=== PATIENT | male | born 1930 | race Caucasian/White ===

== ENCOUNTER → 2016-12-31 | Outpatient (CLI) | payer OTHER ==
[2015-09-03 12:30] VITALS: BP 195/89
[~2016-12-31] MED LIST: ALLO300T PO; AMLO5TAB2 PO; BENZ200C39 PO; DICL100G7 TP; FLUO15CR TP; FLUT9.9S NS; FURO20TA3 PO; GLUCOSAMINE; HYDR12.53 PO; LISI1TAB5 PO; MULT-659 PO; NAPR500T PO; OMEG1CAP38 PO; POTA20PA8 PO; PRED15SO3 PO; SALI44.3 MM
--- NOTE | 2017-01-01 12:24 | PAIN ---
DATE OF SERVICE: 12/31/2016 DIAGNOSES: 1. Lumbar radiculopathy with lumbar degenerative disk disease. 2. Thoracic degenerative disk disease. HISTORY OF PRESENT ILLNESS: The patient is an 86-year-old male who returns for followup, last seen on 08/19/2016, the patient underwent a second lumbar epidural steroid injection, at that time, did very well. The patient reports approximately 75-80% improvement at that time with the pain in his low back and right lower extremity. The patient reports the pain is returning now for about the past 30 days, is increasing, not nearly to the baseline level that it was, but it is beginning to become more painful in the low back, right leg, right posterior thigh, posterior calf as well as the lateral calf as well on the right side, occasional pain in the left low back and gluteus, mostly on the right. The patient reports it is also in the anterior thigh, medial thigh on the right side and into the right groin at times as well. The patient reports it is better with sitting or lying down. He has been sleeping fairly well, awakes him from sleep occasionally. He rates his pain as a 3 or 4 on a scale of 10. The patient did have MRI scans in the past and plain films as well, which showed some significant degenerative disk disease and stenosis in the areas of the L2-L3, L3-L4, L4-L5 and L5-S1 levels with significant bone spurring and significant stenosis in these regions. The patient has responded well; however, to lumbar epidural steroid injections again with good response about 80% on the most recent one in July, which was the second one in that series. The patient reports no new motor or sensory deficits. No bowel or bladder incontinence or other complaints. PHYSICAL EXAMINATION: VITAL SIGNS: The patient's blood pressure 133/93, pulse 85, respirations 18, temperature 98.3 degrees Fahrenheit, height is 5 feet 11 inches, weight is 203 pounds. GENERAL: The patient is awake, alert, oriented, appropriate, very pleasant demeanor. HEENT: Head shows normocephalic, atraumatic. The patient wears eyeglasses. Extraocular movements are intact and symmetrical. Oral cavity shows mucous membranes moist and pink. Dentition is intact. NECK: Shows anterior throat supple. Swallow reflex is symmetrical. Neck shows full rotational motion. CHEST: Shows normal on inspection. Breath sounds are clear to auscultation bilaterally. HEART: Shows S1 and S2 clear. ABDOMEN: Soft, nontender, nondistended. No palpable organomegaly. No rebound or guarding demonstrated. BACK: Shows spine grossly midline. Slight exaggeration of thoracic kyphosis and mild flattening of lumbar lordotic curvature. No previous bruises, lesions, rashes or scars are noted. Lumbar paraspinous muscle shows some moderate tenderness to palpation throughout the upper, middle and lower distribution, but is symmetrical without evidence of atrophy, hypertrophy. Muscle girth shows normal on palpation. The patient shows good rotational motion both laterally greater than 10 degrees right and left as well as extension greater than 10 degrees, forward flexion to 45 degrees without difficulty or tenderness reported. No tenderness over the sacrum or sacroiliac regions. LOWER EXTREMITIES: Show deep tendon reflexes 2+ in the patella, 1+ tendo calcaneus tendons. Motor exam is approximately 4 on a scale 5 with right dorsiflexion, extension, quadriceps and hamstring flexion 5/5 on the left. Peripheral pulses are 1+ posterior tibial and dorsalis pedis pulses. No peripheral edema is noted. No clubbing or cyanosis. Options were discussed with the patient and the patient's old chart was reviewed as his current medication regimen updated, current review of systems updated today as well. PLAN: We discussed an additional lumbar epidural steroid injection. He did very well with these in the past. The patient continues to do his stretching and strengthening exercises at home and has had chiropractic treatment as well as the recently as earlier this week, which he feels is somewhat beneficial, but again, still significant pain in a radicular fashion in low back, right lower extremity over the left. We will preauthorize the patient for lumbar epidural steroid injection. He will continue to do exercises at home as noted and also chiropractic treatment in the meantime and we will have him return for a lumbar epidural steroid injection in approximately 1-2 weeks. ELLIE DIANA MD DR: SHARI/asha JOB#: [id number] / [id number]
== END | disposition home or self-care (01) ==
LOC: PNCL 10:05
PROVIDERS: ATTEND Anesthesiology
DX: M51.16 Intervertebral disc disorders with radiculopathy, lumbar region (principal); M51.34 Other intervertebral disc degeneration, thoracic region
CPT/HCPCS: G0463

== ENCOUNTER → 2017-01-14 | Outpatient (CLI) | payer OTHER ==
[2015-09-03 12:30] VITALS: BP 195/89
[~2017-01-14] MED LIST changes: +IOHEXOL 180 MG/ML 10 ML VIAL. ONE; +methylPREDNISolone ACETATE 40 MG/ML VIAL. ONE; +methylPREDNISolone ACETATE 80 MG/ML VIAL. ONE
--- NOTE | 2017-01-15 07:11 | PAIN ---
DATE OF SERVICE: 01/14/2017 PROGRESS NOTE FOR PAIN CLINIC DIAGNOSES: 1. Lumbar radiculopathy with lumbar degenerative disk disease. 2. Thoracic degenerative disk disease. HISTORY OF PRESENT ILLNESS: The patient is an 86-year-old male who returns for followup status post lumbar epidural steroid injections in the past. He did very well with these; most recently was in 07/2016. The patient has been preauthorized for additional injection today as his pain is returning in the low back and right lower extremity. The patient reports no new motor or sensory deficits, but still significant pain in the low back region, right lower extremity, rates at 4 to a 6 on a scale of 10, it is a constant ache, worse with standing and walking activity. He has been increasing activity lately. 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 The patient reports no new motor or sensory deficits; however, no new bowel or bladder incontinence or other complaints. PHYSICAL EXAMINATION: VITAL SIGNS: The patient's blood pressure 144/87, pulse 84, respirations 18, temperature 97.8 degrees Fahrenheit, height is 5 feet 11 inches, weight is 200 pounds. GENERAL: The patient is awake, alert, oriented, appropriate, has a very pleasant demeanor. HEENT: Head shows normocephalic, atraumatic. The patient wears eye glasses. Extraocular movements are intact and symmetrical. Oral cavity, mucous membranes are moist and pink. Dentition is intact. NECK: Shows anterior throat supple without palpable lymphadenopathy noted. Swallow reflex is symmetrical. CHEST: Shows normal on inspection. Breath sounds clear to auscultation bilaterally. HEART: Shows S1 and S2 clear. ABDOMEN: Soft, nontender, nondistended. BACK: Shows spine grossly midline. Slight exaggeration of thoracic kyphosis and mild flattening of lumbar lordotic curvature. Lumbar paraspinous muscle shows some mild tenderness with palpation only diffusely in the lower lumbar distribution, but without asymmetry, without radiation. No tenderness over the sacrum or sacroiliac regions. EXTREMITIES: Lower extremities showed deep tendon reflexes 2+ in the patellar, 1+ tendo calcaneus tendons. Motor exam is approximately 4 on a scale of 5 in the right dorsiflexion, extension, quadriceps and hamstring flexion 5/5 on the left. Options were discussed with the patient. The patient's old chart was reviewed as his current medication regimen updated. Current review of systems updated today as well and we will proceed with a lumbar epidural steroid injection today. This is the third in the series with fluoroscopic guidance. Risks were again discussed including, but not limited to bleeding, infection, possibility of epidural hematoma, subsequent neurologic compromise, dural punctures, headaches, spinal cord and/or nerve damage, side effects of steroid medication and poor results regarding pain control. The patient understands and wishes to proceed. The patient will return to clinic in approximately 2 weeks for followup. He was counseled as to return appointment, activity level and side effects to be aware of. DIAGNOSIS: Lumbar radiculopathy with lumbar degenerative disease. PROCEDURE: Lumbar epidural steroid injection in translaminar approach in the L3-L4 level with C-arm fluoroscopic guidance under sterile prep and drape using local anesthesia. MEDICATIONS INJECTED: 120 mg Depo-Medrol plus 10 mL of preservative-free normal saline and 2 mL of Isovue for contrast. CONDITION AT DISCHARGE: Stable. The patient tolerated procedure well, had no complications. ELLIE DIANA MD DR: SHARI/asha JOB#: [id number] / [id number]
== END | disposition home or self-care (01) ==
LOC: PNCL 09:50
PROVIDERS: ATTEND Anesthesiology
DX: M51.16 Intervertebral disc disorders with radiculopathy, lumbar region (principal)
CPT/HCPCS: 62323; J1030; J1040

== ENCOUNTER → 2017-03-02 | Outpatient (CLI) | payer OTHER ==
[2015-09-03 12:30] VITALS: BP 195/89
[~2017-03-02] MED LIST changes: -IOHEXOL 180 MG/ML 10 ML VIAL. ONE; +TRIA15OI TP; -methylPREDNISolone ACETATE 40 MG/ML VIAL. ONE; -methylPREDNISolone ACETATE 80 MG/ML VIAL. ONE
--- NOTE | 2017-03-03 06:56 | PAIN ---
DATE OF SERVICE: 03/02/2017 PROGRESS NOTE FOR PAIN CLINIC DIAGNOSES: 1. Lumbar radiculopathy with lumbar degenerative disk disease. 2. Thoracic degenerative disk disease. HISTORY OF PRESENT ILLNESS: The patient is an 86-year-old male who returns for followup status post lumbar epidural steroid injections, most recently 01/14/2017. The patient did very well with near 80% improvement after the last injection. The patient reports it is beginning to return now. It has been about 6 or 7 weeks since his last injection and it is beginning to return now in the low back and right lower extremity as it was previously, mostly in the posterior back, posterior lateral gluteus, lateral and medial thigh, anterior thigh, medial knee and medial lower leg with extended walking more than about 15-20 minutes. The patient reports his left leg is still essentially pain free, but significant pain in the right lower extremity with radiating pain as noted on the right side. The patient reports it is awakening him from sleep occasionally, but not every night. Otherwise, he sleeps fairly well. It is beginning to limit his activities secondary to the pain when he is walking. It is better with sitting down or lying down for most times, but does awaken him from sleep occasionally when he is lying on his right side. The patient reports no loss of motor function. No new bowel or bladder incontinence or other complaints, but still significant pain radiating into the right leg from the low back as it has previously. The patient rates his pain as a 7 on a scale of 10 at its worst. It is currently a 3-4 on a scale of 10 on visit today. PHYSICAL EXAMINATION: VITAL SIGNS: The patient's blood pressure is 132/76, pulse 80, respirations 18, temperature is 98.5 degrees Fahrenheit. Height is 5 feet 11 inches, weight is 202 pounds. GENERAL: The patient is awake, alert, oriented, appropriate, has a very pleasant demeanor. HEENT: Shows normocephalic, atraumatic. Extraocular movements are intact and symmetrical. Oral cavity shows mucous membranes moist and pink. Dentition is intact. NECK: Shows anterior throat supple without palpable lymphadenopathy noted. Swallow reflex is symmetrical. Neck shows full rotational motion of the cervical spine including extension and flexion without difficulty. CHEST: Shows normal on inspection. Breath sounds are clear to auscultation bilaterally. HEART: Shows S1 and S2 clear. No murmurs auscultated. ABDOMEN: Soft, nontender, nondistended. No palpable organomegaly is noted. No rebound or guarding demonstrated. BACK: Shows spine grossly in the midline, slight exaggeration of thoracic kyphosis and mild flattening of the lumbar lordotic curvature. Lumbar paraspinous musculature shows symmetrical on inspection, with palpation shows normal muscle girth, is firm, moderately tender to palpation in the lower lumbar distribution, slightly more on the right than the left, but appears roughly symmetrical, again normal muscle girth without trigger points, without radiation of pain, on palpation, the patient shows no tenderness over the spinous processes over the sacrum or sacroiliac regions. The patient shows good rotational motion both laterally greater than 10 degrees right and left as well as extension greater than 10 degrees, forward flexion 45 degrees without significant pain reported in the low back as well. No tenderness over the sacrum or sacroiliac regions. LOWER EXTREMITIES: Show deep tendon reflexes at 2+ in the patellar, 1+ tendo calcaneus tendons. Motor exam is approximately 4 on a scale of 5 with right dorsiflexion, extension, quadriceps and hamstring flexion and 5/5 on the left, but intact bilaterally. Peripheral pulses are 1+ posterior tibial and dorsalis pedis pulses. No peripheral edema is noted. No clubbing, no cyanosis. Lower extremities are warm and dry to touch, equal in color and appearance. Straight leg raise is noted to be positive on the right at about 40 degrees with straight leg raise, which is decreased with knee flexion, but not completely relieved the pain in the lateral and anterior thigh with this maneuver. Left side shows nontender with straight leg raise. The patient is able to stand. He is walking with a slight shuffling in his gait, appears to favor the right lower extremity slightly, but not using any assistive devices such as canes or walkers to ambulate. PLAN: Options were discussed with the patient and the patient's old chart was reviewed as was his current medication regimen and updated. Current review of systems updated today as well. We will preauthorize the patient for a lumbar epidural steroid injection. He has done very well with these in the past with similar radicular pain as he is having now in the right lower extremity noted with a history of L3-L4 stenosis and degenerative disk disease. The patient will wait for preauthorization and will return to clinic and we will plan on lumbar epidural steroid injection in approximately 1 week. ELLIE DIANA MD DR: SHARI/asha JOB#: [id number] / [id number]
== END | disposition home or self-care (01) ==
LOC: PNCL 10:54
PROVIDERS: ATTEND Anesthesiology
DX: M51.16 Intervertebral disc disorders with radiculopathy, lumbar region (principal); M51.34 Other intervertebral disc degeneration, thoracic region
CPT/HCPCS: G0463

== ENCOUNTER → 2017-03-23 | Outpatient (CLI) | payer OTHER ==
[2015-09-03 12:30] VITALS: BP 195/89
[~2017-03-23] MED LIST changes: +IOHEXOL 180 MG/ML 10 ML VIAL. ONE; +methylPREDNISolone ACETATE 40 MG/ML VIAL. ONE; +methylPREDNISolone ACETATE 80 MG/ML VIAL. ONE
--- NOTE | 2017-03-23 14:11 | PAIN ---
DATE OF SERVICE: 03/23/2017 PROGRESS NOTE FOR PAIN CLINIC DIAGNOSES: Lumbar radiculopathy with lumbar degenerative disk disease. HISTORY OF PRESENT ILLNESS: The patient is an 86-year-old male, who returns for followup status post lumbar epidural steroid injection x 1. The patient did very well after the first injection with approximately 85% improvement. The pain is returning now in his low back and right lower extremity, but still doing much better. The patient reports he is still sleeping about 7-8 hours at night, does not awaken him from sleep, increasing activity with moderate improvement, still anywhere from 2 to 7 on a scale of 10, 7 with increased activity and this was noticeable last week when he was doing some increased walking with the pain in his right leg radiating to the right anterior thigh and medial thigh with some tingling as well as some sharp pain, as well as aching. The patient reports no new motor or sensory deficits; however, no new complaints, still some pain across the low back as well, but unchanged. The patient reports no new motor or sensory deficits. No bowel or bladder incontinence. PHYSICAL EXAMINATION: VITAL SIGNS: Today, the patient's blood pressure 135/82, pulse 78, respirations are 20, temperature is 98.1 degrees Fahrenheit. Height is 5 feet 11 inches, weight is 205 pounds. GENERAL: The patient is awake, alert, oriented, appropriate, very pleasant demeanor. HEENT: Head shows normocephalic, atraumatic. Extraocular movements are intact and symmetrical. Oral cavity shows mucous membranes moist and pink. Dentition is intact. NECK: Shows anterior throat supple without palpable lymphadenopathy noted. Swallow reflex is symmetrical. CHEST: Shows normal with inspection. Breath sounds clear to auscultation bilaterally. HEART: Shows S1 and S2 clear. No murmurs auscultated. ABDOMEN: Soft, nontender, nondistended. No palpable organomegaly is noted. No rebound or guarding demonstrated. BACK: Shows spine grossly midline. Slight exaggeration of thoracic kyphosis and some mild flattening of lumbar lordotic curvature. Lumbar paraspinous musculature shows some mild tenderness, but only diffusely in the lower lumbar distribution without radiation, shows good rotational motion both laterally as well as extension and flexion without exacerbation of pain. EXTREMITIES: Lower extremities show deep tendon reflexes 2+ in the patellar, 1+ tendo calcaneus tendons. Motor exam is approximately 4 on a scale of 5 with right dorsiflexion and extension, 5/5 with left dorsiflexion and extension. Options were discussed with the patient. The patient's old chart was reviewed as his current medication regimen updated. Current review of systems updated today as well. We will proceed with a second lumbar epidural steroid injection today with fluoroscopic guidance. Risks were again discussed including, but not limited to bleeding, infection, possibility of epidural hematoma, subsequent neurologic compromise, dural puncture, headaches, spinal cord and/or nerve damage, side effects of steroid medication and poor results regarding pain control. The patient understands and wishes to proceed. The patient will return to clinic in approximately 2 weeks for followup, was counseled on return appointment, activity level and side effects to be aware of. DIAGNOSES: Lumbar radiculopathy with lumbar degenerative disk disease. PROCEDURES: Lumbar epidural steroid injection in translaminar approach at the L3-L4 level using C-arm fluoroscopic guidance under sterile prep and drape using local anesthetic. MEDICATION INJECTED: Depo-Medrol 120 mg plus 5 mL of preservative-free normal saline and 2 mL of Isovue for contrast. CONDITION AT DISCHARGE: Stable. The patient tolerated procedure well, had no complications. ELLIE DIANA MD DR: SHARI/asha JOB#: [id number] / [id number]
== END | disposition home or self-care (01) ==
LOC: PNCL 10:15
PROVIDERS: ATTEND Anesthesiology
DX: M51.16 Intervertebral disc disorders with radiculopathy, lumbar region (principal)
CPT/HCPCS: 62323; J1030; J1040

== ENCOUNTER → 2017-06-09 | Outpatient (CLI) | payer OTHER ==
[2015-09-03 12:30] VITALS: BP 195/89
[~2017-06-09] MED LIST changes: -BENZ200C39 PO; +BENZ200C47 PO; +DICL100G18 TP; -DICL100G7 TP; -IOHEXOL 180 MG/ML 10 ML VIAL. ONE; +POTA20PA21 PO; -POTA20PA8 PO; -methylPREDNISolone ACETATE 40 MG/ML VIAL. ONE; -methylPREDNISolone ACETATE 80 MG/ML VIAL. ONE
== END | disposition home or self-care (01) ==
LOC: PNCL 09:16
PROVIDERS: ATTEND Anesthesiology
DX: Z00.00 Encounter for general adult medical examination without abnormal findings (principal); E78.00 Pure hypercholesterolemia, unspecified; R73.01 Impaired fasting glucose
CPT/HCPCS: G0463

== ENCOUNTER → 2017-06-25 | Outpatient (CLI) | payer OTHER ==
[2015-09-03 12:30] VITALS: BP 195/89
[~2017-06-25] MED LIST changes: +IOHEXOL 180 MG/ML 10 ML VIAL. ONE; +methylPREDNISolone ACETATE 40 MG/ML VIAL. ONE; +methylPREDNISolone ACETATE 80 MG/ML VIAL. ONE
--- NOTE | 2017-06-25 23:25 | PAIN ---
DATE OF SERVICE: PROGRESS NOTE FOR PAIN CLINIC DIAGNOSES: Lumbar radiculopathy with lumbar degenerative disk disease. HISTORY OF PRESENT ILLNESS: The patient is an 87-year-old male, who returns for followup status post lumbar epidural steroid injection x 1 with very good results, about 75% improvement. The patient reports that his pain is returning. We had seen him for office visit and had preauthorization obtained for second injection as the pain is returning in the low back and right lower extremity. The patient reports that now it is a 5-6 on a scale of 10, 7 at its worst. It is currently a 2 on a scale of 10. The patient reports that it is aching and sharp, radiating to the right leg as it was previously, as well as at the low back, no new motor or sensory deficits, and no new bowel or bladder incontinence. The patient reports that it does not awaken her from sleep at night, much worse with standing and walking, better with sitting and lying down - ____ most comfortable positions. The patient reports no other complaints. PHYSICAL EXAMINATION: VITAL SIGNS: Today, the patient's blood pressure is 164/91, pulse 85, respirations are 18, temperature 98.6 degrees Fahrenheit, height 5 feet 11 inches, and weight is 194 pounds. GENERAL: The patient is awake, alert, oriented, and appropriate, very pleasant demeanor. HEENT: Shows normocephalic, atraumatic. Extraocular movements are intact and symmetrical. Oral cavity, mucous membranes are moist and pink. Dentition is intact. NECK: Shows anterior throat supple without palpable lymphadenopathy noted. Swallow reflex is symmetrical. CHEST: Shows normal on inspection. Breath sounds are clear to auscultation bilaterally. HEART: Shows S1 and S2 clear. ABDOMEN: Soft, nontender, and nondistended. BACK: Shows spine grossly midline. Slight exaggeration of thoracic kyphosis and mild flattening of lumbar lordotic curvature. Lumbar paraspinous musculature shows some moderate tenderness to palpation, but is symmetrical without atrophy or hypertrophy. EXTREMITIES: The patient's lower extremities show deep tendon reflexes at 2+ in the patellar tendon and 1+ in the tendocalcaneus tendon, equal. Motor exam is strong with dorsiflexion and extension rated at 5/5, and equal and symmetrical. Options were discussed with the patient. We will proceed with a second in this series of lumbar epidural steroid injection today with fluoroscopic guidance. Risks were again discussed including, but not limited to bleeding, infection, possibility of epidural hematoma and subsequent neurological compromise, dural puncture, headaches, spinal cord and/or nerve damage, side effects of steroid medication, and poor results regarding pain control. The patient understands and wishes to proceed. The patient will return to clinic in approximately 2 weeks for followup. She was counseled on return appointment, activity level, and side effects to be aware of. DIAGNOSIS: Lumbar radiculopathy with lumbar degenerative disk disease. PROCEDURE: Lumbar epidural steroid injection in translaminar approach at the L3-4 level using C-arm fluoroscopic guidance under sterile prep and drape using local anesthetic. MEDICATION INJECTED: A total of 120 mg of Depo-Medrol plus 10 mL of preservative-free normal saline and 2 mL of Isovue for contrast. CONDITION AT DISCHARGE: Stable. The patient tolerated the procedure well, had no complications. ELLIE DIANA MD DR: SHARI/asha JOB#: [id number] / [id number]
== END | disposition home or self-care (01) ==
LOC: PNCL 13:32
PROVIDERS: ATTEND Anesthesiology
DX: M51.16 Intervertebral disc disorders with radiculopathy, lumbar region (principal); Z88.6 Allergy status to analgesic agent; Z88.0 Allergy status to penicillin; Z88.2 Allergy status to sulfonamides
CPT/HCPCS: 62323; J1030; J1040

== ENCOUNTER → 2017-07-09 | Outpatient (CLI) | payer OTHER ==
[2015-09-03 12:30] VITALS: BP 195/89
[~2017-07-09] MED LIST changes: -IOHEXOL 180 MG/ML 10 ML VIAL. ONE; -methylPREDNISolone ACETATE 40 MG/ML VIAL. ONE; -methylPREDNISolone ACETATE 80 MG/ML VIAL. ONE
--- NOTE | 2017-07-09 11:07 | PN ---
DATE: 07/09/2017 PROGRESS NOTE FOR PAIN CLINIC DIAGNOSES: Lumbar radiculopathy with lumbar degenerative disk disease. HISTORY OF PRESENT ILLNESS: The patient is an 87-year-old male who returns for followup status post lumbar epidural steroid injection x 2 on 06/25/2017. The patient reports about 60% improvement in the pain in his right leg. He is doing much better and it was quite painful, still having some pain radiating into the right leg in the L4 dermatome across the thigh, medial thigh, into the medial lower leg. It is aching, dull pain across the low back as well. The patient reports it is anywhere from a 2 to a 6 on a scale of 10, average about 4-5 on a scale of 10, worse with walking and standing, again much improved; however, has been increasing his activity with greater ease and comfort, doing daily activities with much better ability, is mowing his lawn on a riding mower with almost no pain. The patient reports it is better with lying down, worse with standing and walking, again much less in the leg, but significant across the low back. The patient has been taking naproxen twice daily, had reduced it to once daily after his last injection and I advised him to try that to twice daily again. In the meantime, the patient reports no new motor or sensory deficits, no new bowel or bladder incontinence or other complaints. PHYSICAL EXAMINATION: VITAL SIGNS: The patient's blood pressure 135/76, pulse 60, respirations are 18, temperature 98.1 degrees Fahrenheit. Height is 5 feet 11 inches, weight is 201 pounds. GENERAL: The patient is awake, alert, oriented, appropriate, has a very pleasant demeanor. HEENT: Head shows normocephalic, atraumatic. Extraocular movements are intact, symmetrical. Oral cavity has mucous membranes are moist and pink. Dentition is intact. NECK: Shows anterior throat supple without palpable lymphadenopathy noted. Swallow reflex is symmetrical. CHEST: Shows normal on inspection. Breath sounds are clear to auscultation bilaterally. HEART: Shows S1 and S2 clear. No murmurs auscultated. ABDOMEN: Soft, obese, nontender, nondistended. No palpable organomegaly is noted. BACK: Shows spine grossly in the midline. Lumbar paraspinous muscle shows some moderate tenderness with palpation in the lumbar distribution bilaterally, but only diffusely without radiation, atrophy or hypertrophy. No tenderness over the spinous processes, sacrum or sacroiliac regions. The patient shows good rotational motion of the lumbar spine, both laterally as well as extension and flexion without significant pain reported. LOWER EXTREMITIES: Show deep tendon reflexes 2+ in the patellar, 1+ tendo calcaneus tendons. Motor exam is strong with 5/5 dorsiflexion and extension with quadriceps and hamstring flexion is approximately 4 on a scale of 5 on the right and 5/5 on the left. Peripheral pulses are 2+ in the posterior tibial distribution. No peripheral edema is noted. No clubbing, no cyanosis. Straight leg raise is still mildly positive on the right at about 45 degrees, but decreased with knee flexion, left side is negative. The patient is able to stand and walks with a slight shuffling gait, not using any assistive devices to ambulate. Options were discussed with the patient. The patient's old chart was reviewed as his current medication regimen and updated. Current review of systems updated today as well. We will preauthorize the patient for a third lumbar epidural steroid injection in the series as he is doing quite well, but still some significant radicular pain in the L4 dermatome on the right as well as low back pain. The patient will return to the clinic. Again will start taking his Naprosyn twice daily as directed, will maintain his level of activity, increase activity as tolerated, stretching and strengthening exercises as he is already doing and we will have him back for his third injection once approved. ELLIE DIANA MD DR: SHARI/asha JOB#: [id number] / [id number]
== END | disposition home or self-care (01) ==
LOC: PNCL 09:22
PROVIDERS: ATTEND Anesthesiology
DX: M51.16 Intervertebral disc disorders with radiculopathy, lumbar region (principal)
CPT/HCPCS: G0463

== ENCOUNTER → 2017-07-23 | Outpatient (CLI) | payer OTHER ==
[2015-09-03 12:30] VITALS: BP 195/89
[~2017-07-23] MED LIST changes: +IOHEXOL 180 MG/ML 10 ML VIAL. ONE; +methylPREDNISolone ACETATE 40 MG/ML VIAL. ONE; +methylPREDNISolone ACETATE 80 MG/ML VIAL. ONE
--- NOTE | 2017-07-23 12:35 | PAIN ---
DATE OF SERVICE: 07/23/2017 DIAGNOSES: Lumbar radiculopathy with lumbar degenerative disk disease. HISTORY OF PRESENT ILLNESS: Mr. Mason is an 87-year-old male who returns for followup, status post previous lumbar epidural steroid injection and preauthorization for injection today. The patient had about 60% improvement after his last injection of the right leg, much improved still, but the patient's main complaint is pain across the low back at this time. The patient reports no new motor or sensory deficits, no new bowel or bladder incontinence or other complaints. The patient's pain is 7 on a scale of 10 at its worst, 4 to 5 on average, and is 2 on a scale of 10 today. Is sleeping well at night. The patient reports have been increasing his activity. Still with some pain returning again in the low back and some on the right side, radiating to the right posterior thigh, but also into the medial thigh, again more occasionally, mostly across the low back, described as tingling, aching and dull. PHYSICAL EXAMINATION: VITAL SIGNS: The patient's blood pressure is 137/85, pulse 85, respirations 18, temperature 97.7 degrees Fahrenheit, weight is 197 pounds. GENERAL: The patient is awake, alert, oriented, appropriate, has very pleasant demeanor. HEENT: Head shows normocephalic, atraumatic. Extraocular movements are intact, symmetrical. Oral cavity, mucous membranes are moist and pink. Dentition is intact. NECK: Shows anterior throat supple, without palpable lymphadenopathy noted. Swallow reflex is symmetrical. CHEST: Shows normal on inspection. Breath sounds clear to auscultation bilaterally. HEART: Shows S1 and S2 clear. ABDOMEN: Soft, nontender, nondistended. MUSCULOSKELETAL: Back shows spine grossly in midline. Slight exaggeration of thoracic kyphosis and mild flattening of lumbar lordotic curvature. Lumbar paraspinous musculature shows diffuse tenderness throughout the upper, middle and lower distribution, but only diffusely and only to a mild extent. Lower extremities showed deep tendon reflexes at 2+ in the patella, 1+ in tendo-calcaneus tendons, are equal. Motor exam is strong with 5/5 dorsiflexion and extension, approximately 4/5 with right quadriceps and hamstring, but 5/5 on the left. Peripheral pulses are 1+ posterior tibial and dorsalis pedis pulses. No peripheral edema is noted on exam today. Options were discussed with the patient. The patient's old chart was reviewed, as the current medication regimen updated. Current review of systems updated today as well. We will proceed with the third in the series of lumbar epidural steroid injection using fluoroscopic guidance. Risks were again discussed, including but not limited to bleeding, infection, possibility of epidural hematoma, subsequent neurologic compromise, dural puncture, headaches, spinal cord and/or nerve damage, side effects of steroid medication and poor results regarding pain control. The patient understands and wishes to proceed. The patient will return to clinic in approximately 2 weeks for followup. He was counseled as to return appointment, activity level and side effects to be aware of. DIAGNOSIS: Lumbar radiculopathy with lumbar degenerative disk disease. PROCEDURE: Lumbar epidural steroid injection in translaminar approach at the L3-L4 level using C-arm fluoroscopic guidance under sterile prep and drape using local anesthetic. MEDICATIONS INJECTED: 120 mg Depo-Medrol plus 10 mL preservative-free normal saline and 2 mL Isovue for contrast. CONDITION AT DISCHARGE: Stable. The patient tolerated procedure well, had no complications. ELLIE DIANA MD DR: SHARI/asha JOB#: [id number] / [id number]
== END | disposition home or self-care (01) ==
LOC: PNCL 09:22
PROVIDERS: ATTEND Anesthesiology
DX: M51.16 Intervertebral disc disorders with radiculopathy, lumbar region (principal); Z88.6 Allergy status to analgesic agent; Z88.1 Allergy status to other antibiotic agents; Z88.0 Allergy status to penicillin; Z88.2 Allergy status to sulfonamides
CPT/HCPCS: 62323; J1030; J1040

== ENCOUNTER → 2018-02-10 | Outpatient (CLI) | payer OTHER | END | disposition home or self-care (01) | LOC: KCIC US 11:04 | DX: R60.0 Localized edema (principal) | CPT/HCPCS: 93971 ==

== ENCOUNTER 2019-01-31 13:19 | Inpatient (IN) | payer OTHER ==
[~2019-01-31] VITALS: Ht 180.3 cm; Wt 78.9 kg
[~2019-01-31 13:19] MED LIST changes: +AMIO200T4 PO; +AMLO5TAB10 PO; -AMLO5TAB2 PO; +ASPI-630 PO; +ATOR40TA59 PO; +CETI10TA22 PO; +CLOT15CR4 TP; -HYDR12.53 PO; +HYDR12.575 PO; -IOHEXOL 180 MG/ML 10 ML VIAL. ONE; +METO-239 PO; +NAPR-683 PO; -NAPR500T PO; -PRED15SO3 PO; +PRED15SO3 SWSP; +SACU1TAB PO; +VENTOLIN HFA18 GM INH; -methylPREDNISolone ACETATE 40 MG/ML VIAL. ONE; -methylPREDNISolone ACETATE 80 MG/ML VIAL. ONE
[2019-01-31 15:15] LABS: BASO # 0.1 x10^3/uL (0.0-0.2); BASO % 1 % (0-3); EOS # 0.2 x10^3/uL (0.0-0.7); EOS % 2 % (0-3); LYMPH # 1.2 x10^3/uL (1.0-4.8); LYMPH % 17 % (24-48); MEAN CORPUSCULAR HEMOGLOBIN 35 pg (25-35); MEAN CORPUSCULAR HGB CONC 34 g/dL (31-37); MEAN CORPUSCULAR VOLUME 101 fL (79-100); MONO # 0.6 x10^3/uL (0.0-1.1); MONO % 9 % (0-9); NEUT # 4.8 x10^3uL (1.8-7.7); NEUT % 70 % (31-73); PLATELET COUNT 271 x10^3/uL (140-400); RED BLOOD COUNT 3.45 x10^6/uL (4.30-5.70); RED CELL DISTRIBUTION WIDTH 18.6 % (11.5-14.5); WHITE BLOOD COUNT 6.9 x10^3/uL (4.0-11.0)
--- NOTE | 2019-01-31 15:20 | PHYS DOC ---
Past Medical History Past Medical History: Arthritis, CHF, COPD, High Cholesterol, Hypertension, Kidney Stone, Other Additional Past Medical Histor: gout, cellulitis Past Surgical History: Knee Replacement, Other Additional Past Surgical Histo: PROSTATECTOMY, PACEMAKER Alcohol Use: None Drug Use: None Adult General Chief Complaint Chief Complaint: FLANK PAIN HPI HPI Patient is a 88 year old male who presents with left flank pain and dysuria 4 days. Review of Systems Review of Systems Constitutional: Denies fever or chills [] Eyes: Denies change in visual acuity, redness, or eye pain [] HENT: Denies nasal congestion or sore throat [] Respiratory: Denies cough or shortness of breath [] Cardiovascular: No additional information not addressed in HPI [] GI: Left flank pain. Denies abdominal pain, nausea, vomiting, bloody stools or diarrhea [] : dysuria or denies hematuria [] Musculoskeletal: Denies back pain or joint pain [] Integument: Denies rash or skin lesions [] Neurologic: Denies headache, focal weakness or sensory changes [] All other systems were reviewed and found to be within normal limits, except as documented in this note. Current Medications Current Medications Current Medications Medications (Trade) Dose Ordered Sig/Ash Start Time Stop Time Status Last Admin Dose Admin Acetaminophen (Tylenol) 650 mg PRN Q4HRS PRN 01/31/19 17:45 02/01/19 17:44 Ceftriaxone Sodium (Rocephin) 1 gm 1X ONCE 01/31/19 17:45 01/31/19 17:47 DC 01/31/19 18:08 1 GM Fentanyl Citrate (Fentanyl 2ml Vial) 50 mcg PRN Q1HR PRN 01/31/19 17:45 02/01/19 17:44 Ondansetron HCl (Zofran) 4 mg PRN Q8HRS PRN 01/31/19 17:45 02/01/19 17:44 Sodium Chloride 250 ml @ 500 mls/hr 1X ONCE 01/31/19 15:30 01/31/19 15:59 DC 01/31/19 15:29 500 MLS/HR Allergies Allergies Allergies Coded Allergies Type Severity Reaction Last Updated Verified Penicillins Allergy Intermediate Rash 10/18/18 Yes Sulfa (Sulfonamide Antibiotics) Allergy Intermediate Rash 10/18/18 Yes adhesive tape Allergy Intermediate Rash 10/18/18 Yes propoxyphene Allergy Intermediate Rash 10/18/18 Yes sulfamethoxazole Allergy Intermediate Rash 10/18/18 Yes trimethoprim Allergy Intermediate Rash 10/18/18 Yes Physical Exam Physical Exam Constitutional: Well developed, well nourished, no acute distress, non-toxic appearance. [] HENT: Normocephalic, atraumatic, bilateral external ears normal, oropharynx moist, no oral exudates, nose normal. [] Eyes: PERRLA, EOMI, conjunctiva normal, no discharge. [] Neck: Normal range of motion, no tenderness, supple, no stridor. [] Cardiovascular:Heart rate regular rhythm, no murmur [] Lungs & Thorax: Bilateral breath sounds clear to auscultation [] Abdomen: Bowel sounds normal, soft, Left lower tenderness, no masses, no pulsatile masses. [] Skin: Warm, dry, no erythema, no rash. [] Back: No tenderness, no CVA tenderness. [] Extremities: No tenderness, no cyanosis, no clubbing, ROM intact, no edema. [] Neurologic: Alert and oriented X 3, normal motor function, normal sensory function, no focal deficits noted. [] Psychologic: Affect normal, judgement normal, mood normal. [] Current Patient Data Vital Signs Vital Signs Date Time Temp Pulse Resp B/P (MAP) Pulse Ox O2 Delivery O2 Flow Rate FiO2 01/31/19 17:30 76 18 148/88 (108) 99 Room Air 01/31/19 14:30 97.4 97.4 Lab Values Laboratory Tests Test 01/31/19 15:00 01/31/19 16:45 White Blood Count 6.9 x10^3/uL (4.0-11.0) Red Blood Count 3.45 x10^6/uL (4.30-5.70) L Hemoglobin 12.0 g/dL (13.0-17.5) L Hematocrit 35.0 % (39.0-53.0) L Mean Corpuscular Volume 101 fL (79-100) H Mean Corpuscular Hemoglobin 35 pg (25-35) Mean Corpuscular Hemoglobin Concent 34 g/dL (31-37) Red Cell Distribution Width 18.6 % (11.5-14.5) H Platelet Count 271 x10^3/uL (140-400) Neutrophils (%) (Auto) 70 % (31-73) Lymphocytes (%) (Auto) 17 % (24-48) L Monocytes (%) (Auto) 9 % (0-9) Eosinophils (%) (Auto) 2 % (0-3) Basophils (%) (Auto) 1 % (0-3) Neutrophils # (Auto) 4.8 x10^3uL (1.8-7.7) Lymphocytes # (Auto) 1.2 x10^3/uL (1.0-4.8) Monocytes # (Auto) 0.6 x10^3/uL (0.0-1.1) Eosinophils # (Auto) 0.2 x10^3/uL (0.0-0.7) Basophils # (Auto) 0.1 x10^3/uL (0.0-0.2) Sodium Level 143 mmol/L (136-145) Potassium Level 4.2 mmol/L (3.5-5.1) Chloride Level 104 mmol/L (98-107) Carbon Dioxide Level 29 mmol/L (21-32) Anion Gap 10 (6-14) Blood Urea Nitrogen 38 mg/dL (8-26) H Creatinine 1.4 mg/dL (0.7-1.3) H Estimated GFR (Cockcroft-Gault) 47.8 BUN/Creatinine Ratio 27 (6-20) H Glucose Level 108 mg/dL (70-99) H Calcium Level 10.3 mg/dL (8.5-10.1) H Total Bilirubin 0.7 mg/dL (0.2-1.0) Aspartate Amino Transferase (AST) 28 U/L (15-37) Alanine Aminotransferase (ALT) 23 U/L (16-63) Alkaline Phosphatase 87 U/L (46-116) Total Protein 7.2 g/dL (6.4-8.2) Albumin 3.5 g/dL (3.4-5.0) Albumin/Globulin Ratio 0.9 (1.0-1.7) L Urine Collection Type Void Urine Color Yellow Urine Clarity Clear Urine pH 6.0 Urine Specific [place] 1.015 Urine Protein Negative mg/dL (NEG-TRACE) Urine Glucose (UA) Negative mg/dL (NEG) Urine Ketones (Stick) Negative mg/dL (NEG) Urine Blood Negative (NEG) Urine Nitrite Negative (NEG) Urine Bilirubin Negative (NEG) Urine Urobilinogen Dipstick 1.0 mg/dL (0.2 mg/dL) Urine Leukocyte Esterase Trace (NEG) Urine RBC 0 /HPF (0-2) Urine WBC 20-40 /HPF (0-4) Urine Squamous Epithelial Cells Few /LPF Urine Bacteria Few /HPF (0-FEW) Urine Hyaline Casts Moderate /HPF Urine Mucus Slight /LPF Laboratory Tests 01/31/19 15:00 Laboratory Tests 01/31/19 15:00 EKG EKG [] Radiology/Procedures Radiology/Procedures [] Impressions: [facility] [address] [place] [address] IMAGING REPORT Signed PATIENT: KITA REED ACCOUNT: [id number] : 1930 LOCATION: ER AGE: 88 SEX: M EXAM STATUS: REG ER ORD. PHYSICIAN: KENYETTA SKINNER APRN REASON: left flank pain, urinary retention PROCEDURE: CT ABDOMEN PELVIS WO CONTRAST CT abdomen pelvis without contrast dated 01/31/2019 comparison: None. INDICATION: Left flank pain. Urinary retention. TECHNIQUE: Contiguous axial imaging of the abdomen and pelvis performed without the administration of intravenous contrast. One or more of the following individualized dose reduction techniques were utilized for this examination: 1. Automated exposure control 2. Adjustment of the mA and/or kV according to patient size 3. Use of iterative reconstruction technique FINDINGS: Limited images of lung bases show a small noncalcified pulmonary nodule in the left lower lobe laterally on image 24, measuring 6 mm in size. This is unchanged from March 2009 study. No new parenchymal nodule is visualized. Heart size is stable. No pleural or pericardial effusion. Extensive coronary calcifications Solid abdominal viscera not well evaluated in the absence of contrast material. No apparent attenuation abnormality of the liver or spleen. Pancreas, adrenal glands unremarkable. There is some high density material in the gallbladder lumen suggestive of sludge. There are multiple calcific stones along the calyceal margins of each kidney, largest of which measures about 10 cm at the left kidney lower pole. At least 7 additional calculi on the left and 2 or 3 additional calculi on the right. No ureteral stone or hydronephrosis. 1.7 cm exophytic low-density nodule at the midpole left kidney measuring Hounsfield value of 23. This appears to somewhat increased in size from the 2009 exam where it measured 1.3 cm previously. Unopacified GI tract normal in caliber and contour. No focal bowel wall thickening. Scattered diverticula throughout the colon. No paracolonic inflammatory changes. No free fluid or lymphadenopathy. Appendix normal in caliber. Images of pelvis show mildly distended urinary bladder. No free fluid or lymphadenopathy. Evidence of prior ventral hernia repair. Bone windows show no acute findings. Multilevel spondylosis with moderate dextroconvex scoliotic curvature. IMPRESSION: 1. Bilateral nephrolithiasis, nonobstructive.. 2. Low-density lesion at the midpole left kidney appears to somewhat increased in size from the 2009 exam and may represent complex cyst or cystic mass. Suggest ultrasound for better evaluation. 3. Sludge-filled gallbladder. 4. Diverticulosis. Electronically signed by: Nickolas Oakley MD (01/31/2019 3:52 PM) [id number] DICTATED and SIGNED BY: NICKOLAS OAKLEY MD DATE: 01/31/19 1552 Course & Med Decision Making Course & Med Decision Making Patient is a 88 year old male who presents with nonradiating sharp left flank pain and dysuria 4 days. Alert and oriented. Skin pink warm and dry. Afebrile. Mucous membranes moist. No CVA tenderness. Abdomen is soft and tender only in the left lower quadrant. Patient states his pain is only a 1 or 2 out of 10. Patient denies burning with urination but states at times he has a hard time getting urine out and is just dribbles and at other times he has a large amount of urine. Patient has had a prostatectomy. Patient states in the past he has had kidney stones. Patient is on a fluid restriction of 2000 mL. He's had a total of about 750 ml 's of fluids today. Bladder scan in the ED shows 0ml of urine in his bladder at this time. Heart rate regular without murmur. Patient denies nausea, vomiting, diarrhea, fever, burning with urination, chest pain, shortness of air. He has 2+ lower extremity peripheral edema. Lungs are clear to auscultation all lobes. She refuses any pain medication at this time. Patient states he took 2 extra strength Tylenols this morning at 7:30. CT ABD PELV shows 1. Bilateral nephrolithiasis, nonobstructive.. 2. Low-density lesion at the midpole left kidney appears to somewhat increased in size from the 2009 exam and may represent complex cyst or cystic mass. Suggest ultrasound for better evaluation. 3. Sludge-filled gallbladder. 4. Diverticulosis. Creatnine is elevated at 1.4 and BUN is 38, both higher than they have been in September 2018. 1621: Patient has been given 250ml normal saline bolus and he still has 0ml in his bladder. 1700: Bladder scan shows 257ml of urine in the bladder. Patient was able to void only 50ml. Urinalysis shows 20-40 white blood cells and some bacteria. 1730: I spoken to Dr. Thomas and patient will be treated for urinary tract infection urinary retention and admitted to the hospital. I started Rocephin IV. Dragon Disclaimer Dragon Disclaimer This electronic medical record was generated, in whole or in part, using a voice recognition dictation system. Departure Departure Impression: Primary Impression: UTI (urinary tract infection) Additional Impression: Urinary retention Disposition: ADMITTED INPATIENT Admitting Physician: Mary Thomas Condition: STABLE Referrals: MARY THOMAS MD (PCP) Problem Qualifiers Primary Impression: UTI (urinary tract infection) Urinary tract infection type: site unspecified Hematuria presence: without hematuria Qualified Codes: N39.0 - Urinary tract infection, site not specified KENYETTA SKINNER APRN Jan 31, 2019 15:20
[2019-01-31 15:30] LABS: CALCIUM 10.3 mg/dL (8.5-10.1); CREATININE 1.4 mg/dL (0.7-1.3); GFR 47.8; POTASSIUM 4.2 mmol/L (3.5-5.1)
[2019-01-31] MEDS ORDERED: IV NORMAL SALINE 500ML BAG 250 ML IV ONE (15:30)
[2019-01-31 15:35] LABS: ALBUMIN 3.5 g/dL (3.4-5.0); ALBUMIN/GLOBULIN RATIO 0.9 (1.0-1.7); TOTAL BILIRUBIN 0.7 mg/dL (0.2-1.0); TOTAL PROTEIN 7.2 g/dL (6.4-8.2)
--- NOTE | 2019-01-31 15:56 | RAD ---
CT abdomen pelvis without contrast dated 01/31/2019 comparison: None. INDICATION: Left flank pain. Urinary retention. TECHNIQUE: Contiguous axial imaging of the abdomen and pelvis performed without the administration of intravenous contrast. One or more of the following individualized dose reduction techniques were utilized for this examination: 1. Automated exposure control 2. Adjustment of the mA and/or kV according to patient size 3. Use of iterative reconstruction technique FINDINGS: Limited images of lung bases show a small noncalcified pulmonary nodule in the left lower lobe laterally on image 24, measuring 6 mm in size. This is unchanged from March 2009 study. No new parenchymal nodule is visualized. Heart size is stable. No pleural or pericardial effusion. Extensive coronary calcifications Solid abdominal viscera not well evaluated in the absence of contrast material. No apparent attenuation abnormality of the liver or spleen. Pancreas, adrenal glands unremarkable. There is some high density material in the gallbladder lumen suggestive of sludge. There are multiple calcific stones along the calyceal margins of each kidney, largest of which measures about 10 cm at the left kidney lower pole. At least 7 additional calculi on the left and 2 or 3 additional calculi on the right. No ureteral stone or hydronephrosis. 1.7 cm exophytic low-density nodule at the midpole left kidney measuring Hounsfield value of 23. This appears to somewhat increased in size from the 2009 exam where it measured 1.3 cm previously. Unopacified GI tract normal in caliber and contour. No focal bowel wall thickening. Scattered diverticula throughout the colon. No paracolonic inflammatory changes. No free fluid or lymphadenopathy. Appendix normal in caliber. Images of pelvis show mildly distended urinary bladder. No free fluid or lymphadenopathy. Evidence of prior ventral hernia repair. Bone windows show no acute findings. Multilevel spondylosis with moderate dextroconvex scoliotic curvature. IMPRESSION: 1. Bilateral nephrolithiasis, nonobstructive.. 2. Low-density lesion at the midpole left kidney appears to somewhat increased in size from the 2009 exam and may represent complex cyst or cystic mass. Suggest ultrasound for better evaluation. 3. Sludge-filled gallbladder. 4. Diverticulosis. Electronically signed by: Nickolas Oakley MD (01/31/2019 3:52 PM) [facility]
[2019-01-31 17:17] LABS: BILIRUBIN,URINE NEGATIVE (NEG); CLARITY,URINE CLEAR; COLOR,URINE YELLOW; NITRITE,URINE NEGATIVE (NEG); PROTEIN,URINE NEGATIVE (NEG-TRACE)
[2019-01-31 17:21] LABS: RBC,URINE 0 /HPF (0-2)
[2019-01-31 17:22] LABS: BACTERIA,URINE FEW /HPF (0-FEW); HYALINE CASTS, URINE MODERATE /HPF; SQUAMOUS EPITHELIAL CELL,UR FEW /LPF; WBC,URINE 20-40 /HPF (0-4)
[2019-01-31] MEDS ORDERED: cefTRIAXone IV Push 1 GM VIAL. IVP ONE (17:45)
[2019-01-31] MEDS ORDERED: ONDANSETRON PF 4 MG/2 ML VIAL. IV PRN (17:45)
[2019-01-31] MEDS ORDERED: fentaNYL PF VIAL 100 MCG/2 ML VIAL IV PRN (17:45)
[2019-01-31] MEDS ORDERED: ACETAMINOPHEN 325 MG TABLET. PO PRN (17:45)
[2019-01-31 19:57] VITALS: BP 114/53
[2019-01-31 23:00] VITALS: BP 119/46
[2019-02-01] MEDS ORDERED: AMIO200T7 PO (01:42)
[2019-02-01] MEDS ORDERED: SACU1TAB7 PO (01:42)
[2019-02-01] MEDS ORDERED: AMLO2.5T5 PO (01:42)
[2019-02-01 03:00] VITALS: BP 135/55
[2019-02-01 07:00] VITALS: BP 144/54
[2019-02-01] MEDS ORDERED: METO25TA4 PO (09:02)
--- NOTE | 2019-02-01 09:02 | PDOC ---
Provider Note Provider Note 2 [id number] MARY THOMAS MD Feb 01, 2019 09:02
--- NOTE | 2019-02-01 09:17 | HP ---
ADMIT DATE: 01/31/2019 CHIEF COMPLAINT: Flank pain. HISTORY OF PRESENT ILLNESS: An 88-year-old white male with a known cardiomyopathy and prior prostatectomy, came in with bilateral flank and lower back pain and some difficulty urinating. He denied dysuria, hematuria, fever, nausea, vomiting or odor to the urine. CT scan showed bilateral renal stones with no hydronephrosis, and he had no urinary retention per scan. Urine showed some white cells. Urine culture is pending. He was given a dose of Rocephin and states he is feeling better at this time. PAST MEDICAL HISTORY: Well documented in the old record. ALLERGIES: PENICILLIN, SULFA. MEDICATIONS: Multiple meds per Cardiology because of dilated cardiomyopathy. SOCIAL HISTORY: Lives alone, nonsmoker, nondrinker, physically inactive because of arthritis. FAMILY HISTORY: Unremarkable. REVIEW OF SYSTEMS: No other complaints. OBJECTIVE: ENT: All within normal limits. NECK: No masses, nodes or bruits. LUNGS: Clear. CARDIOVASCULAR: Regular rate. No irregular beat, murmur or S3. ABDOMEN: Obese, soft, benign and nontender. BACK: No flank tenderness or masses are noted. EXTREMITIES: 1+ ankle edema, bilateral venous varicosities, otherwise generally unremarkable. Pedal pulses mildly diminished. No joint or skin lesions are seen. NEUROLOGIC: Physiologic, nonfocal. ASSESSMENT: Lower back and flank pain with evidence of urinary tract infection. Feeling better at this time. Some of the pain may be musculoskeletal. He does have prerenal azotemia. Meds contributing could be naproxen and Lasix. PLAN: Hold those two meds. Continue Rocephin and follow renal function. MARY THOMAS MD DR: CODEY/asha JOB#: [id number] / [id number]
[2019-02-01] MEDS: ASPIRIN CHEWABLE 81 MG TABLET. PO SCH (09:33)
[2019-02-01] MEDS: SACUBITRIL/VALSARTAN 49/51MG TABLET. PO SCH ×2 (09:33→21:00)
[2019-02-01] MEDS: METOPROLOL TART IMMED RELEASE 25 MG TABLET. PO SCH ×2 (09:33→21:01)
[2019-02-01] MEDS: AMIODARONE HCL 200 MG TABLET. PO SCH (09:34)
[2019-02-01] MEDS: amLODIPine BESYLATE 5 MG TABLET PO SCH (09:34)
[2019-02-01] MEDS: ALLOPURINOL 300 MG TABLET. PO SCH (09:36)
--- NOTE | 2019-02-01 10:23 | PDOC2 ---
UROLOGY CONSULT Date of Consult Date of Consult DATE: 02/01/19 TIME: 10:15 History of Present Illness Reason for Visit: Patient is a 88 year old male who presents with left flank pain and dysuria 4 days to the ED last night. He had also been having some trouble with emptying his bladder. This resolved when he had a BM yesterday and then another one this morning. Since this happened, he has had no problem with emptying his bladder. He also denies dysuria or hematuria. He does have a history of kidney stones and thinks he may have one right now on the right because he has been having some intermittent flank pain on the right also for seven days. He is not having flank pain currently and he denies nausea and vomiting. He has not seen any grit or sand come out in his urine. He has had three lithotripsies and several small stones come out in his urine. He has a history of prostate cancer and had a radical prostatectomy in [address] Vicente at [facility]; he continues to see Dr. Vicente once per year for follow up on this issue and each visit has been normal so far since the procedure. Past Medical History Cardiovascular: HTN Pulmonary: No pertinent hx CENTRAL NERVOUS SYSTEM: Other GI: No pertinent hx Heme/Onc: No pertinent hx Hepatobiliary: No pertinent hx Psych: No pertinent hx Musculoskeletal: low back pain, Osteoarthritis Rheumatologic: No pertinent hx, Gout Infectious disease: No pertinent hx Renal/: Benign prostatic enlarg., Other Endocrine: No pertinent hx Past Surgical History Past Surgical History: Cataract Removal, Total knee replacement, Other Social History ALCOHOL: none Drugs: None Lives: Alone Current Problem List Problems: (1) UTI (urinary tract infection) (2) Urinary retention Current Medications Current Medications Current Medications Acetaminophen (Tylenol) 650 mg PRN Q4HRS PRN PO FEVER; Start 01/31/19 at 17:45 ; Stop 02/01/19 at 17:44 Allopurinol (Zyloprim) 300 mg DAILY PO Last administered on 02/01/19at 09:36; Start 02/01/19 at 09:00 Amiodarone HCl (Cordarone) 200 mg DAILY PO Last administered on 02/01/19at 09:34 ; Start 02/01/19 at 09:00 Amlodipine Besylate (Norvasc) 2.5 mg DAILY PO Last administered on 02/01/19at 09 :34; Start 02/01/19 at 09:00 Aspirin (Children'S Aspirin) 81 mg DAILY08 PO Last administered on 02/01/19at 09 :33; Start 02/01/19 at 09:00 Ceftriaxone Sodium (Rocephin) 1 gm 1X ONCE IVP Last administered on 01/31/19at 18:08; Start 01/31/19 at 17:45; Stop 01/31/19 at 17:47; Status DC Ceftriaxone Sodium (Rocephin) 1 gm Q24H IVP ; Start 02/01/19 at 15:00 Fentanyl Citrate (Fentanyl 2ml Vial) 50 mcg PRN Q1HR PRN IV PAIN; Start at 17:45; Stop 02/01/19 at 17:44 Metoprolol Tartrate (Lopressor) 25 mg BID PO Last administered on 02/01/19at 09: 33; Start 02/01/19 at 09:00 Ondansetron HCl (Zofran) 4 mg PRN Q8HRS PRN IV NAUSEA/VOMITING; Start 01/31/19 at 17:45; Stop 02/01/19 at 17:44 Sacubitril/ Valsartan (Entresto 49 Mg-51 Mg) 1 tab BID PO Last administered on 02/01/19at 09:33; Start 02/01/19 at 09:00 Sodium Chloride 250 ml @ 500 mls/hr 1X ONCE IV Last administered on at 15:29; Start 01/31/19 at 15:30; Stop 01/31/19 at 15:59; Status DC Allergies Allergies: Coded Allergies: Penicillins (Verified Allergy, Intermediate, Rash, 10/18/18) Sulfa (Sulfonamide Antibiotics) (Verified Allergy, Intermediate, Rash, ) adhesive tape (Verified Allergy, Intermediate, Rash, 10/18/18) propoxyphene (Verified Allergy, Intermediate, Rash, 10/18/18) sulfamethoxazole (Verified Allergy, Intermediate, Rash, 10/18/18) trimethoprim (Verified Allergy, Intermediate, Rash, 10/18/18) ROS Review Of Systems: CONSTITUTIONAL: No fever or chills EYES: No recent changes SKIN: No rash or itching CARDIOVASCULAR: No chest pain, syncope, palpitations, or edema RESPIRATORY: No SOB or cough GASTROINTESTINAL: No nausea, vomiting or abdominal pain. Intermittent right flank pain. NEUROLOGICAL: No headaches or weakness ENDOCRINE: No cold or heat intolerance GENITOURINARY: No urgency or frequency of urination, retention is resolved. MUSCULOSKELETAL: No back pain or joint pain LYMPHATICS: No enlarged lymph nodes PSYCHIATRIC: No anxiety or depression Physical Exam Physical Exam: General: Pleasant, no acute distress, well groomed Eyes: conjunctiva anicteric, eyes full range of motion ENT: moist oral mucosa, normal dentition Neck: Trachea midline, no masses Respiratory: unlabored breathing, not using accessory muscles, Back: No CVA pain bilaterally Abdomen: nontender, nondistended, no hepatosplenomegaly, no masses Skin: no rashes or skin lesions on visualized skin Psych: normal mood, affect. Alert and oriented x 3. Vitals VITALS Vital Signs Date Time Temp Pulse Resp B/P (MAP) Pulse Ox O2 Delivery O2 Flow Rate FiO2 02/01/19 09:34 60 144/54 02/01/19 08:00 Room Air 02/01/19 07:00 97.5 18 97 97.5 Labs Labs Laboratory Tests Test 01/31/19 15:00 01/31/19 16:45 White Blood Count 6.9 x10^3/uL (4.0-11.0) Red Blood Count 3.45 x10^6/uL (4.30-5.70) Hemoglobin 12.0 g/dL (13.0-17.5) Hematocrit 35.0 % (39.0-53.0) Mean Corpuscular Volume 101 fL (79-100) Mean Corpuscular Hemoglobin 35 pg (25-35) Mean Corpuscular Hemoglobin Concent 34 g/dL (31-37) Red Cell Distribution Width 18.6 % (11.5-14.5) Platelet Count 271 x10^3/uL (140-400) Neutrophils (%) (Auto) 70 % (31-73) Lymphocytes (%) (Auto) 17 % (24-48) Monocytes (%) (Auto) 9 % (0-9) Eosinophils (%) (Auto) 2 % (0-3) Basophils (%) (Auto) 1 % (0-3) Neutrophils # (Auto) 4.8 x10^3uL (1.8-7.7) Lymphocytes # (Auto) 1.2 x10^3/uL (1.0-4.8) Monocytes # (Auto) 0.6 x10^3/uL (0.0-1.1) Eosinophils # (Auto) 0.2 x10^3/uL (0.0-0.7) Basophils # (Auto) 0.1 x10^3/uL (0.0-0.2) Sodium Level 143 mmol/L (136-145) Potassium Level 4.2 mmol/L (3.5-5.1) Chloride Level 104 mmol/L (98-107) Carbon Dioxide Level 29 mmol/L (21-32) Anion Gap 10 (6-14) Blood Urea Nitrogen 38 mg/dL (8-26) Creatinine 1.4 mg/dL (0.7-1.3) Estimated GFR (Cockcroft-Gault) 47.8 BUN/Creatinine Ratio 27 (6-20) Glucose Level 108 mg/dL (70-99) Calcium Level 10.3 mg/dL (8.5-10.1) Total Bilirubin 0.7 mg/dL (0.2-1.0) Aspartate Amino Transf (AST/SGOT) 28 U/L (15-37) Alanine Aminotransferase (ALT/SGPT) 23 U/L (16-63) Alkaline Phosphatase 87 U/L (46-116) Total Protein 7.2 g/dL (6.4-8.2) Albumin 3.5 g/dL (3.4-5.0) Albumin/Globulin Ratio 0.9 (1.0-1.7) Urine Collection Type Void Urine Color Yellow Urine Clarity Clear Urine pH 6.0 Urine Specific [place] 1.015 Urine Protein Negative mg/dL (NEG-TRACE) Urine Glucose (UA) Negative mg/dL (NEG) Urine Ketones (Stick) Negative mg/dL (NEG) Urine Blood Negative (NEG) Urine Nitrite Negative (NEG) Urine Bilirubin Negative (NEG) Urine Urobilinogen Dipstick 1.0 mg/dL (0.2 mg/dL) Urine Leukocyte Esterase Trace (NEG) Urine RBC 0 /HPF (0-2) Urine WBC 20-40 /HPF (0-4) Urine Squamous Epithelial Cells Few /LPF Urine Bacteria Few /HPF (0-FEW) Urine Hyaline Casts Moderate /HPF Urine Mucus Slight /LPF Laboratory Tests Test 01/31/19 15:00 01/31/19 16:45 White Blood Count 6.9 x10^3/uL (4.0-11.0) Red Blood Count 3.45 x10^6/uL (4.30-5.70) Hemoglobin 12.0 g/dL (13.0-17.5) Hematocrit 35.0 % (39.0-53.0) Mean Corpuscular Volume 101 fL (79-100) Mean Corpuscular Hemoglobin 35 pg (25-35) Mean Corpuscular Hemoglobin Concent 34 g/dL (31-37) Red Cell Distribution Width 18.6 % (11.5-14.5) Platelet Count 271 x10^3/uL (140-400) Neutrophils (%) (Auto) 70 % (31-73) Lymphocytes (%) (Auto) 17 % (24-48) Monocytes (%) (Auto) 9 % (0-9) Eosinophils (%) (Auto) 2 % (0-3) Basophils (%) (Auto) 1 % (0-3) Neutrophils # (Auto) 4.8 x10^3uL (1.8-7.7) Lymphocytes # (Auto) 1.2 x10^3/uL (1.0-4.8) Monocytes # (Auto) 0.6 x10^3/uL (0.0-1.1) Eosinophils # (Auto) 0.2 x10^3/uL (0.0-0.7) Basophils # (Auto) 0.1 x10^3/uL (0.0-0.2) Sodium Level 143 mmol/L (136-145) Potassium Level 4.2 mmol/L (3.5-5.1) Chloride Level 104 mmol/L (98-107) Carbon Dioxide Level 29 mmol/L (21-32) Anion Gap 10 (6-14) Blood Urea Nitrogen 38 mg/dL (8-26) Creatinine 1.4 mg/dL (0.7-1.3) Estimated GFR (Cockcroft-Gault) 47.8 BUN/Creatinine Ratio 27 (6-20) Glucose Level 108 mg/dL (70-99) Calcium Level 10.3 mg/dL (8.5-10.1) Total Bilirubin 0.7 mg/dL (0.2-1.0) Aspartate Amino Transf (AST/SGOT) 28 U/L (15-37) Alanine Aminotransferase (ALT/SGPT) 23 U/L (16-63) Alkaline Phosphatase 87 U/L (46-116) Total Protein 7.2 g/dL (6.4-8.2) Albumin 3.5 g/dL (3.4-5.0) Albumin/Globulin Ratio 0.9 (1.0-1.7) Urine Collection Type Void Urine Color Yellow Urine Clarity Clear Urine pH 6.0 Urine Specific [place] 1.015 Urine Protein Negative mg/dL (NEG-TRACE) Urine Glucose (UA) Negative mg/dL (NEG) Urine Ketones (Stick) Negative mg/dL (NEG) Urine Blood Negative (NEG) Urine Nitrite Negative (NEG) Urine Bilirubin Negative (NEG) Urine Urobilinogen Dipstick 1.0 mg/dL (0.2 mg/dL) Urine Leukocyte Esterase Trace (NEG) Urine RBC 0 /HPF (0-2) Urine WBC 20-40 /HPF (0-4) Urine Squamous Epithelial Cells Few /LPF Urine Bacteria Few /HPF (0-FEW) Urine Hyaline Casts Moderate /HPF Urine Mucus Slight /LPF Images Images 1. Bilateral nephrolithiasis, nonobstructive.. 2. Low-density lesion at the midpole left kidney appears to somewhat increased in size from the 2009 exam and may represent complex cyst or cystic mass. Suggest ultrasound for better evaluation. 3. Sludge-filled gallbladder. 4. Diverticulosis. Assessment/Plan Assessment/Plan PVR is zero=no retention CT scan shows some non obstructive stones, do not recommend intervention for this Continue UTI treatment per medical team.UA mildly suspicious for UTI and patient already on Rocephin. Await culture results. Renal US for kidney mass ordered. Dr. Polanco to check on patient later. MARYAN MCKEON APRN Feb 01, 2019 10:23
[2019-02-01 11:00] VITALS: BP 115/42
--- NOTE | 2019-02-01 12:58 | RAD ---
Renal ultrasound, 02/01/2019: HISTORY: Left renal mass on CT The right kidney measures 10.5 cm in length while the left kidney measures 12.2 cm. There are multiple echogenic foci in both kidneys compatible with patient's known intrarenal calculi. There is no evidence of hydronephrosis. There is a 1.9 cm cystic-appearing structure arising from the cortex along the lateral aspect of left kidney. This corresponds in location to the mass seen on the recent CT study. No other renal mass is identified. The partially filled urinary bladder is unremarkable. IMPRESSION: 1. Multiple bilateral intrarenal calculi. 2. Small left renal cyst Electronically signed by: Heron Solomon MD (02/01/2019 12:54 PM) [facility]
--- NOTE | 2019-02-01 14:24 | NUR ---
SW following pt for anticipated dc needs. Chart reviewed. Pt lives at home alone. No discharge recommendations noted at this time. KRYSTINA Lara to order PT/OT to assess skilled needs. Will continue to follow.
[2019-02-01 15:00] VITALS: BP 120/50
[2019-02-01] MEDS ORDERED: cefTRIAXone IV Push 1 GM VIAL. IVP SCH (15:00)
[2019-02-01 19:58] VITALS: BP 138/49
[2019-02-01] MEDS: LACTOBACILLUS RHAMNOSUS GG 1 CAPSULE. PO SCH (20:59)
[2019-02-01 23:29] VITALS: BP 155/56
[2019-02-02 03:19] VITALS: BP 118/61
[2019-02-02 04:43] LABS: CALCIUM 9.2 mg/dL (8.5-10.1); CREATININE 1.3 mg/dL (0.7-1.3); GFR 52.1; POTASSIUM 4.1 mmol/L (3.5-5.1)
[2019-02-02 07:00] VITALS: BP 138/53
--- NOTE | 2019-02-02 08:23 | DISCH ---
DISCHARGE INSTRUCTIONS Condition on Discharge Condition on Discharge: Stable Activity After Discharge Activity Instructions for Disc: Other, see below Bathing Instructions: Shower-keep dressing dry, No Tub Bath until see Lifting Instructions after Dis: No heavy lifting, No pulling or pushing, Do not lift >10 pounds Weight Bearing Status after Di: As tolerated Diet after Discharge Diet after Discharge: Cardiac, Low Sodium 4 gm Diet Texture: Regular Wound Incision Care Wound/Incision Care: Other, see below Follow-Up Follow up with: as scheduled Treatment/Equipment after DC Adaptive Equipment Issued: Brace/splint MARY THOMAS MD Feb 02, 2019 08:23
--- NOTE | 2019-02-02 08:28 | PDOC ---
Provider Note Provider Note [id number] MARY THOMAS MD Feb 02, 2019 08:28
[2019-02-02] MEDS ORDERED: CEFDINIR 300 MG CAPSULE PO ONE (08:30)
[2019-02-02] MEDS: LACTOBACILLUS RHAMNOSUS GG 1 CAPSULE. PO SCH (09:00)
[2019-02-02] MEDS: ALLOPURINOL 300 MG TABLET. PO SCH (09:22)
[2019-02-02] MEDS: AMIODARONE HCL 200 MG TABLET. PO SCH (09:23)
[2019-02-02] MEDS: amLODIPine BESYLATE 5 MG TABLET PO SCH (09:24)
[2019-02-02 09:25] VITALS: BP 138/53
[2019-02-02] MEDS: METOPROLOL TART IMMED RELEASE 25 MG TABLET. PO SCH (09:25)
[2019-02-02] MEDS: SACUBITRIL/VALSARTAN 49/51MG TABLET. PO SCH (09:25)
[2019-02-02] MEDS: ASPIRIN CHEWABLE 81 MG TABLET. PO SCH (09:31)
--- NOTE | 2019-02-02 11:50 | NUR ---
PT DISCHARGED TO HOME. FAMILY PROVIDED TRANSPORTATION. DISCUSSED DIET, MEDICATIONS, ACTIVITY AND FOLLOW UP. VERBALIZED UNDERSTANDING.
--- NOTE | 2019-02-02 17:12 | DS ---
DATE OF DISCHARGE: 02/02/2019 HOSPITAL SUMMARY: An 88-year-old white male came in with some low back pain and a feeling of some urinary retention. Urine showed 20-40 white cells. Urine culture is pending. BUN was 38, creatinine 1.4 on admission and reduced to 24 and 1.2 by holding Lasix. He was treated with IV Rocephin x 2 doses and is feeling better, afebrile. A renal sonogram showed left renal cyst, but no retention or hydronephrosis and the CT scan showed stones bilaterally with no hydronephrosis either. He is comfortable to be discharged and followed as an outpatient. FINAL DIAGNOSES: 1. Urinary tract infection. 2. Bilateral nephrocalcinosis. 3. Prerenal azotemia secondary medications. OPERATIONS, PROCEDURES, COMPLICATIONS: None. CONSULTATIONS: Urology group. DISPOSITION: He will take cefpodoxime 100 mg twice a day for 4 days. Test results will be provided to the patient to take to his primary urologist. Rest of home meds remain the same and office followup as needed with his physicians. PROGNOSIS: Good. MARY THOMAS MD DR: [email or web address]/asha JOB#: [id number] / [id number]
== END 2019-02-02 11:50 | disposition home or self-care (01) | DRG 690 ==
LOC: ER 13:19 → 6 SOUTH 17:45
PROVIDERS: ADMIT Family Medicine; ATTEND Family Medicine
DX: N39.0 Urinary tract infection, site not specified (principal); I42.9 Cardiomyopathy, unspecified; I11.0 Hypertensive heart disease with heart failure; I50.9 Heart failure, unspecified; M19.90 Unspecified osteoarthritis, unspecified site; J44.9 Chronic obstructive pulmonary disease, unspecified; E78.00 Pure hypercholesterolemia, unspecified; Z96.659 Presence of unspecified artificial knee joint; E83.59 Other disorders of calcium metabolism; N29 Other disorders of kidney and ureter in diseases classified elsewhere; K57.90 Diverticulosis of intestine, part unspecified, without perforation or abscess without bleeding; Z85.46 Personal history of malignant neoplasm of prostate; N28.89 Other specified disorders of kidney and ureter; Z87.442 Personal history of urinary calculi; Z90.79 Acquired absence of other genital organ(s)
CPT/HCPCS: 36415; 74176; 76770; 80048; 80053; 81001; 85025; 87086; 96374; 96376; J0696; J7040; 99285-25

== ENCOUNTER → 2019-04-04 | Outpatient (CLI) | payer OTHER ==
[~2019-04-04] MED LIST changes: +AMIO200T7 PO; +AMLO2.5T5 PO; +METO25TA4 PO; +SACU1TAB7 PO
--- NOTE | 2019-04-04 14:19 | KCIC ---
3 views of thoracic spine dated 04/04/2019. No comparison available. Clinical data indication: Pain between shoulder blades. FINDINGS: AP lateral and swimmer's views obtained. The lateral views are limited due to overlap. There is a moderate wedge compression deformity of L1 based on the AP view. There is moderate dextroconvex scoliotic curvature of the upper lumbar spine. The upper thoracic levels are not well evaluated due to overlap. Multilevel spondylosis. IMPRESSION: 1. Limited exam due to obliquity. 2. Wedge compression deformity of L1, age indeterminate. 3. 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 Electronically signed by: Nickolas Oakley MD (04/04/2019 2:16 PM) [facility]
--- NOTE | 2019-04-04 14:22 | KCIC ---
Right-sided rib study dated 04/04/2019. No comparison available. CLINICAL INDICATION: Pain. FINDINGS: 3 views of right-sided ribs show no evidence of displaced right rib fracture. No acute bony abnormality. The right lung is clear. No pneumothorax. Possible nondisplaced fracture of the posterior lateral fifth right rib. IMPRESSION: 1. Possible nondisplaced fracture of the posterior lateral right fifth rib. 2. Otherwise no significant abnormality. Electronically signed by: Nickolas Oakley MD (04/04/2019 2:19 PM) [facility]
== END | disposition home or self-care (01) ==
LOC: KCIC 13:08
PROVIDERS: ATTEND Family Medicine
DX: M47.816 Spondylosis without myelopathy or radiculopathy, lumbar region (principal); M43.8X6 Other specified deforming dorsopathies, lumbar region
CPT/HCPCS: 71100; 72072

== ENCOUNTER 2019-07-31 21:58 | Emergency (ER) | payer OTHER ==
[~2019-07-31] VITALS: Ht 177.8 cm; Wt 73.5 kg
[~2019-07-31 21:58] MED LIST changes: +LISI1TAB19 PO; -LISI1TAB5 PO
[2019-07-31] MEDS ORDERED: IV NORMAL SALINE 500ML BAG 500 ML IV ONE (23:00)
[2019-07-31 23:05] LABS: BASO # 0.1 x10^3/uL (0.0-0.2); BASO % 1 % (0-3); EOS # 0.3 x10^3/uL (0.0-0.7); EOS % 4 % (0-3); HEMOGLOBIN 12.4 g/dL (13.0-17.5); LYMPH # 0.9 x10^3/uL (1.0-4.8); LYMPH % 12 % (24-48); MEAN CORPUSCULAR HEMOGLOBIN 35 pg (25-35); MEAN CORPUSCULAR HGB CONC 34 g/dL (31-37); MEAN CORPUSCULAR VOLUME 101 fL (79-100); MONO # 0.6 x10^3/uL (0.0-1.1); MONO % 8 % (0-9); NEUT # 6.1 x10^3/uL (1.8-7.7); NEUT % 76 % (31-73); PLATELET COUNT 236 x10^3/uL (140-400); RED BLOOD COUNT 3.58 x10^6/uL (4.30-5.70); RED CELL DISTRIBUTION WIDTH 14.8 % (11.5-14.5)
[2019-07-31 23:13] LABS: CALCIUM 10.1 mg/dL (8.5-10.1); CREATININE 1.4 mg/dL (0.7-1.3); GFR 47.7; POTASSIUM 4.4 mmol/L (3.5-5.1)
[2019-07-31 23:18] LABS: ALBUMIN 3.7 g/dL (3.4-5.0); ALBUMIN/GLOBULIN RATIO 1.2 (1.0-1.7); MAGNESIUM 2.3 mg/dL (1.8-2.4); TOTAL BILIRUBIN 0.6 mg/dL (0.2-1.0); TOTAL PROTEIN 6.8 g/dL (6.4-8.2)
--- NOTE | 2019-07-31 23:21 | RAD ---
Exam: Chest one view INDICATION: Cough TECHNIQUE: Frontal view of the chest Comparisons: 10/19/2018 FINDINGS: Pacer with leads terminating in the right atrium and ventricle. Heart is mildly enlarged. Pulmonary vessels are within normal limits. The lung and pleural spaces are clear. Mild bronchial wall thickening is noted. IMPRESSION: Bronchial wall thickening which can be seen in setting of bronchitis. Electronically signed by: Kevan Villa MD (07/31/2019 11:18 PM) [facility]
--- NOTE | 2019-07-31 23:32 | PHYS DOC ---
Past Medical History Past Medical History: Arthritis, CHF, COPD, High Cholesterol, Hypertension, Kidney Stone, Other Additional Past Medical Histor: gout, cellulitis Past Surgical History: Knee Replacement, Other Additional Past Surgical Histo: PROSTATECTOMY, PACEMAKER Alcohol Use: None Drug Use: None Adult General Chief Complaint Chief Complaint: COUGH HPI HPI Patient is an 89-year-old male who presents to the emergency department after he had a coughing spell earlier this evening. He states he coughed her approximately 30 minutes and noted at times his heart rate would dip below. He denies any chest pain shortness of breath or dyspnea on exertion. He denies any fever chills or sweats. He states when he coughs he coughed up some clear phlegm. He states sometimes when he coughs it indicates that he may be a little bit dehydrated. He hasn't been eating or drinking much since the time he started coughing several hours ago. He denies any hemoptysis. Currently he states he feels back to normal.[] Review of Systems Review of Systems Constitutional: Denies fever or chills [] Eyes: Denies change in visual acuity, redness, or eye pain [] HENT: Denies nasal congestion or sore throat [] Respiratory: Reports a cough[] Cardiovascular: No additional information not addressed in HPI [] GI: Denies abdominal pain, nausea, vomiting, bloody stools or diarrhea [] : Denies dysuria or hematuria [] Musculoskeletal: Denies back pain or joint pain [] Integument: Denies rash or skin lesions [] Neurologic: Denies headache, focal weakness or sensory changes [] Endocrine: Denies polyuria or polydipsia [] All other systems were reviewed and found to be within normal limits, except as documented in this note. Current Medications Current Medications Current Medications Medications (Trade) Dose Ordered Sig/Ash Start Time Stop Time Status Last Admin Dose Admin Sodium Chloride 500 ml @ 500 mls/hr 1X ONCE 07/31/19 23:00 07/31/19 23:59 07/31/19 23:04 500 MLS/HR Allergies Allergies Allergies Coded Allergies Type Severity Reaction Last Updated Verified Penicillins Allergy Intermediate Rash 10/18/18 Yes Sulfa (Sulfonamide Antibiotics) Allergy Intermediate Rash 10/18/18 Yes adhesive tape Allergy Intermediate Rash 10/18/18 Yes propoxyphene Allergy Intermediate Rash 10/18/18 Yes sulfamethoxazole Allergy Intermediate Rash 10/18/18 Yes trimethoprim Allergy Intermediate Rash 10/18/18 Yes Physical Exam Physical Exam Constitutional: Well developed, well nourished, no acute distress, non-toxic gopal earance. [] HENT: Normocephalic, atraumatic, bilateral external ears normal, oropharynx moist, no oral exudates, nose normal. [] Eyes: PERRLA, EOMI, conjunctiva normal, no discharge. [] Neck: Normal range of motion, no tenderness, supple, no stridor. [] Cardiovascular:Heart rate regular rhythm, no murmur [] Lungs & Thorax: Pacemaker left upper chest Bilateral breath sounds clear to auscultation [] Abdomen: Bowel sounds normal, soft, no tenderness, no masses, no pulsatile masses. [] Skin: Warm, dry, no erythema, no rash. [] Back: No tenderness, no CVA tenderness. [] Extremities: No tenderness, no cyanosis, no clubbing, ROM intact, no edema. [] Neurologic: Alert and oriented X 3, normal motor function, normal sensory function, no focal deficits noted. [] Psychologic: Affect normal, judgement normal, mood normal. [] Current Patient Data Vital Signs Vital Signs Date Time Temp Pulse Resp B/P (MAP) Pulse Ox O2 Delivery O2 Flow Rate FiO2 07/31/19 22:06 97.7 66 21 164/74 (104) 96 Room Air 97.7 Lab Values Laboratory Tests Test 07/31/19 22:55 White Blood Count 8.0 x10^3/uL (4.0-11.0) Red Blood Count 3.58 x10^6/uL (4.30-5.70) L Hemoglobin 12.4 g/dL (13.0-17.5) L Hematocrit 36.0 % (39.0-53.0) L Mean Corpuscular Volume 101 fL (79-100) H Mean Corpuscular Hemoglobin 35 pg (25-35) Mean Corpuscular Hemoglobin Concent 34 g/dL (31-37) Red Cell Distribution Width 14.8 % (11.5-14.5) H Platelet Count 236 x10^3/uL (140-400) Neutrophils (%) (Auto) 76 % (31-73) H Lymphocytes (%) (Auto) 12 % (24-48) L Monocytes (%) (Auto) 8 % (0-9) Eosinophils (%) (Auto) 4 % (0-3) H Basophils (%) (Auto) 1 % (0-3) Neutrophils # (Auto) 6.1 x10^3/uL (1.8-7.7) Lymphocytes # (Auto) 0.9 x10^3/uL (1.0-4.8) L Monocytes # (Auto) 0.6 x10^3/uL (0.0-1.1) Eosinophils # (Auto) 0.3 x10^3/uL (0.0-0.7) Basophils # (Auto) 0.1 x10^3/uL (0.0-0.2) Sodium Level 144 mmol/L (136-145) Potassium Level 4.4 mmol/L (3.5-5.1) Chloride Level 108 mmol/L (98-107) H Carbon Dioxide Level 30 mmol/L (21-32) Anion Gap 6 (6-14) Blood Urea Nitrogen 33 mg/dL (8-26) H Creatinine 1.4 mg/dL (0.7-1.3) H Estimated GFR (Cockcroft-Gault) 47.7 BUN/Creatinine Ratio 24 (6-20) H Glucose Level 130 mg/dL (70-99) H Calcium Level 10.1 mg/dL (8.5-10.1) Magnesium Level 2.3 mg/dL (1.8-2.4) Total Bilirubin 0.6 mg/dL (0.2-1.0) Aspartate Amino Transferase (AST) 19 U/L (15-37) Alanine Aminotransferase (ALT) 21 U/L (16-63) Alkaline Phosphatase 95 U/L (46-116) Troponin I Quantitative < 0.017 ng/mL (0.000-0.055) Total Protein 6.8 g/dL (6.4-8.2) Albumin 3.7 g/dL (3.4-5.0) Albumin/Globulin Ratio 1.2 (1.0-1.7) Laboratory Tests 07/31/19 22:55 Laboratory Tests 07/31/19 22:55 EKG EKG [] Interpretation Time: EKG: Sinus with PVCs rate 60s no obvious ischemic changes Radiology/Procedures Radiology/Procedures [] Impressions: REASON: cough PROCEDURE: CHEST AP ONLY Exam: Chest one view INDICATION: Cough TECHNIQUE: Frontal view of the chest Comparisons: 10/19/2018 FINDINGS: Pacer with leads terminating in the right atrium and ventricle. Heart is mildly enlarged. Pulmonary vessels are within normal limits. The lung and pleural spaces are clear. Mild bronchial wall thickening is noted. IMPRESSION: Bronchial wall thickening which can be seen in setting of bronchitis. Course & Med Decision Making Course & Med Decision Making Pertinent Labs and Imaging studies reviewed. (See chart for details) [] Dragon Disclaimer Dragon Disclaimer This electronic medical record was generated, in whole or in part, using a voice recognition dictation system. Departure Departure Impression: Primary Impression: Cough Disposition: HOME, SELF-CARE Condition: STABLE Referrals: MARY THOMAS MD (PCP) Patient Instructions: Cough, Adult Additional Instructions: Follow with Dr. Thomas this week for recheck. Return to the emergency department with any new or concerning symptoms GENESIS NICHOLS DO Jul 31, 2019 23:32
[2019-07-31 23:35] VITALS: BP 158/76
--- NOTE | 2019-08-01 08:57 | EKG ---
[facility] [address] [place] [id number] Test Date: 2019-07-31 Test Time: 22:55:27 Pat Name: KITA REED Department: Room: Gender: M Breeder Service Technician: : [id number] Requested By: GENESIS NICHOLS Order Number: [id number] Reading MD: Measurements Intervals [place] Rate: 65 P: 35 NV: 214 QRS: 2 QRSD: 110 T: 92 QT: 418 QTc: 435 Interpretive Statements SINUS RHYTHM VENTRICULAR PREMATURE COMPLEX(ES), BIGEMINY LOW LIMB LEAD VOLTAGE T ABNORMALITY IN HIGH LATERAL LEADS ABNORMAL ECG RI6.01 No previous ECG available for comparison
== END 2019-07-31 23:51 | disposition home or self-care (01) ==
LOC: ER 21:58
DX: R05 Cough (principal); M19.90 Unspecified osteoarthritis, unspecified site; I11.0 Hypertensive heart disease with heart failure; I50.9 Heart failure, unspecified; E78.00 Pure hypercholesterolemia, unspecified; J44.9 Chronic obstructive pulmonary disease, unspecified; Z87.442 Personal history of urinary calculi; Z95.0 Presence of cardiac pacemaker; Z88.1 Allergy status to other antibiotic agents; Z88.2 Allergy status to sulfonamides; Z88.8 Allergy status to other drugs, medicaments and biological substances; Z88.0 Allergy status to penicillin
CPT/HCPCS: 36415; 71045; 80053; 83735; 84484; 85025; 93005; 99285; J7040

== ENCOUNTER 2020-05-08 13:53 | Emergency (ER) | payer MEDICARE, OTHER ==
[~2020-05-08] VITALS: Ht 177.8 cm; Wt 71.0 kg
[~2020-05-08 13:53] MED LIST changes: -CETI10TA22 PO; +CETI10TA24 PO; +CLOT15CR23 TP; -CLOT15CR4 TP; -DICL100G18 TP; +DICL100G54 TP
[2020-05-08] MEDS ORDERED: NEOMY/BACITR/POLYMYXIN OINT PACKET. TP ONE (14:15)
[2020-05-08] MEDS ORDERED: LIDOCAINE 2%/EPI 1:100,000 20 ML VIAL. IJ ONE (14:15)
--- NOTE | 2020-05-08 15:11 | RAD ---
CT head and cervical spine without contrast History: Fall, head trauma, scalp laceration Technique: Noncontrast CT imaging was performed of the head and cervical spine. Multiplanar reconstruction images are submitted. Exposure: One or more of the following individualized dose reduction techniques were utilized for this examination: 1. Automated exposure control 2. Adjustment of the mA and/or kV according to patient size 3. Use of iterative reconstruction technique. Head CT Comparison: None Findings: No hyperdense intracranial hemorrhage is identified. There is [id number] supratentorial atrophy somewhat greater of the frontal lobes. There is mild ill-defined low-density of the supratentorial parenchyma bilaterally. Ventricular size is proportionate to sulcal spaces. There is frontal scalp hematoma more eccentric to the left. Visualized paranasal sinuses and mastoid air cells are overall aerated. Right maxillary tooth is located at the inferior wall of the maxillary sinus. There is atherosclerotic calcification of the intradural vertebral arteries greater on the right, also of the bilateral carotid siphons. Impression: 1. No hyperdense intracranial hemorrhage is identified. 2. There is supratentorial atrophy somewhat greater of the frontal lobes. Mild ill-defined low-density of the supratentorial parenchyma is probably due to chronic microvascular ischemic disease in a patient this age. Cervical spine CT Comparison: None Findings: There is moderate levoscoliosis of cervical spine. There is negligible anterior spondylolisthesis C7-T1. There is subtle lucency of the anterior, superior C7 vertebral body along the superior endplate and anterior superior cortical surface. There is no significant perivertebral edema Atlanto-axial distance is within normal limits. There is appropriate alignment of lateral masses of C1 relative to C2. Occipital condylar-C1 relationship is maintained. There is fairly advanced degenerative disc disease greatest at C5-6, to a somewhat lesser degree C3-4, C4-5, and C6-7. There are multilevel posterior disc osteophyte complexes greatest C3-4 through C6-7. There is estimated central canal stenosis about 6 to 7 mm C5-C6 and C4-5 and to lesser degree at C3-C4. There is multilevel facet and uncovertebral degenerative change with resultant multilevel cervical neural foramina compromise, more significant narrowing bilaterally at C3-C4, C4-5, C5-6, C6-7, and on the left at C7-T1. There is some atherosclerotic calcification of the carotid arteries in the neck bilaterally. Impression: 1. There is subtle lucency of the anterior superior C7 vertebral body. While a recent fracture is difficult to entirely exclude, this is favored to be older as not associated with significant perivertebral edema or other fracture. 2. There is multilevel cervical degenerative disc disease and spondylosis, also spinal stenosis greatest C4-5 and C5-6. 3. There is multilevel significant cervical neural foramina compromise due to facet and uncovertebral degenerative change., no previous exams to evaluate for change. Electronically signed by: Tucker Crawford MD (05/08/2020 3:08 PM) [id number]
--- NOTE | 2020-05-08 15:18 | PHYS DOC ---
Past Medical History Past Medical History: Arthritis, CHF, COPD, High Cholesterol, Hypertension, Kidney Stone, Other Additional Past Medical Histor: gout, cellulitis Past Surgical History: Knee Replacement, Pacemaker, Other Additional Past Surgical Histo: PROSTATECTOMY, PACEMAKER Smoking Status: Never Smoker Alcohol Use: None Drug Use: None General Adult EDM: Chief Complaint: TRAUMA ALERT HPI: HPI: Patient is a 89 year old [f__sex] who presents with [] Review of Systems: Review of Systems: Constitutional: Denies fever or chills Eyes: Denies redness or eye pain HENT: Denies nasal congestion or sore throat Respiratory: Denies cough or shortness of breath Cardiovascular: Denies chest pain or palpitations GI: Denies abdominal pain, nausea, or vomiting : Denies dysuria or hematuria Musculoskeletal: Denies back pain or joint pain Integument: Denies rash or skin lesions Neurologic: Denies headache, focal weakness or sensory changes Complete systems were reviewed and found to be within normal limits, except as documented in this note. Current Medications: Current Medications Medications (Trade) Dose Ordered Sig/Ash Start Time Stop Time Status Last Admin Dose Admin Lidocaine/ Epinephrine (LIDOCAINE 2%-EPI 1:100,000 multi-dose) 20 ml 1X ONCE 05/08/20 14:15 05/08/20 14:16 DC 05/08/20 14:39 20 ML Neomycin/ Polymyxin/ Bacitracin (Triple Antibiotic Ointment) 1 pkt 1X ONCE 05/08/20 14:15 05/08/20 14:16 DC 05/08/20 14:39 1 PKT Allergies: Allergies: Allergies Coded Allergies Type Severity Reaction Last Updated Verified Penicillins Allergy Intermediate Rash 10/18/18 Yes Sulfa (Sulfonamide Antibiotics) Allergy Intermediate Rash 10/18/18 Yes adhesive tape Allergy Intermediate Rash 10/18/18 Yes propoxyphene Allergy Intermediate Rash 10/18/18 Yes sulfamethoxazole Allergy Intermediate Rash 10/18/18 Yes trimethoprim Allergy Intermediate Rash 10/18/18 Yes Physical Exam: PE: Constitutional: Well developed, well nourished, no acute distress, non-toxic appearance HENT: Normocephalic, atraumatic, oropharynx moist Eyes: PERRL, EOMI, conjunctiva normal, no discharge Neck: Normal range of motion, no tenderness, supple Cardiovascular: Heart rate normal, regular rhythm Lungs & Thorax: Bilateral breath sounds clear to auscultation, no wheezing Abdomen: Soft, no tenderness Skin: Warm, dry, no erythema, no rash Back: No tenderness, no CVA tenderness Extremities: No tenderness, ROM intact, no edema Neurologic: Alert and oriented X 3, normal motor function, normal sensory function, no focal deficits noted Psychologic: Affect normal, judgment normal Current Patient Data: Vital Signs: Vital Signs Date Time Temp Pulse Resp B/P (MAP) Pulse Ox O2 Delivery O2 Flow Rate FiO2 05/08/20 14:55 54 16 135/60 (85) 98 Room Air 05/08/20 13:53 98.3 98.3 EKG: EKG: [] Radiology/Procedures: Radiology/Procedures: PROCEDURE: CT HEAD AND CERVICAL SPINE WO CT head and cervical spine without contrast History: Fall, head trauma, scalp laceration Technique: Noncontrast CT imaging was performed of the head and cervical spine. Multiplanar reconstruction images are submitted. Exposure: One or more of the following individualized dose reduction techniques were utilized for this examination: 1. Automated exposure control 2. Adjustment of the mA and/or kV according to patient size 3. Use of iterative reconstruction technique. Head CT Comparison: None Findings: No hyperdense intracranial hemorrhage is identified. There is [id number] supratentorial atrophy somewhat greater of the frontal lobes. There is mild ill-defined low-density of the supratentorial parenchyma bilaterally. Ventricular size is proportionate to sulcal spaces. There is frontal scalp hematoma more eccentric to the left. Visualized paranasal sinuses and mastoid air cells are overall aerated. Right maxillary tooth is located at the inferior wall of the maxillary sinus. There is atherosclerotic calcification of the intradural vertebral arteries greater on the right, also of the bilateral carotid siphons. Impression: 1. No hyperdense intracranial hemorrhage is identified. 2. There is supratentorial atrophy somewhat greater of the frontal lobes. Mild ill-defined low-density of the supratentorial parenchyma is probably due to chronic microvascular ischemic disease in a patient this age. Cervical spine CT Comparison: None Findings: There is moderate levoscoliosis of cervical spine. There is negligible anterior spondylolisthesis C7-T1. There is subtle lucency of the anterior, superior C7 vertebral body along the superior endplate and anterior superior cortical surface. There is no significant perivertebral edema Atlanto-axial distance is within normal limits. There is appropriate alignment of lateral masses of C1 relative to C2. Occipital condylar-C1 relationship is maintained. There is fairly advanced degenerative disc disease greatest at C5-6, to a somewhat lesser degree C3-4, C4-5, and C6-7. There are multilevel posterior disc osteophyte complexes greatest C3-4 through C6-7. There is estimated central canal stenosis about 6 to 7 mm C5-C6 and C4-5 and to lesser degree at C3-C4. There is multilevel facet and uncovertebral degenerative change with resultant multilevel cervical neural foramina compromise, more significant narrowing bilaterally at C3-C4, C4-5, C5-6, C6-7, and on the left at C7-T1. There is some atherosclerotic calcification of the carotid arteries in the neck bilaterally. Impression: 1. There is subtle lucency of the anterior superior C7 vertebral body. While a recent fracture is difficult to entirely exclude, this is favored to be older as not associated with significant perivertebral edema or other fracture. 2. There is multilevel cervical degenerative disc disease and spondylosis, also spinal stenosis greatest C4-5 and C5-6. 3. There is multilevel significant cervical neural foramina compromise due to facet and uncovertebral degenerative change., no previous exams to evaluate for change. Electronically signed by: Tucker Crawford MD (05/08/2020 3:08 PM) [id number] Course & Med Decision Making: Course & Med Decision Making Pertinent Imaging studies reviewed. (See chart for details) Patient stable for discharge with outpatient follow-up with PCP. Discussed findings and plan with patient and family, who acknowledge understanding and agreement. Nahomi Disclaimer: Nahomi Disclaimer: This electronic medical record was generated, in whole or in part, using a voice recognition dictation system. Departure Departure Impression: Primary Impression: Laceration of forehead Qualified Codes: S01.81XA - Laceration without foreign body of other part of head, initial encounter Additional Impressions: Head contusion Qualified Codes: S00.93XA - Contusion of unspecified part of head, initial encounter Skin tear Abrasion Disposition: 01 HOME, SELF-CARE Condition: STABLE Referrals: MARY THOMAS MD (PCP) Patient Instructions: Abrasion, [id number], Facial Laceration, [id number], Facial or Scalp Contusion, [id number], Skin Tear Care, [id number] Additional Instructions: Do not soak your wound. You may shower. Clean wound daily with soap and water. Change dressing 2 times daily. Use over the counter antibiotic ointment with each dressing change. Sutures need to be removed in 5-7 days. Present to your family doctor or local urgent care for removal. You may also present to the ED but it will be an additional visit/charge. After suture removal you may use Vitamin E ointment to soften the wound and prevent scarring. Justicifation of Admission Dx: Justifications for Admission: Justification of Admission Dx: N/A Laceration/Wound Repair Laceration/Wound Repair : Wound Location: face Wound's Depth, Shape: superficial, linear Wound Length (cm): 4 Wound Explored: clean Anesthesia: Lidocaine w/ Epi (2%) Volume Anesthetic (ccs): 5 Wound Debrided: minimal Wound Repaired With: sutures Suture Size/Type: 5:0, nylon Number of Sutures: 6 Sterile Dressing Applied?: Yes Progress Verbal consent obtained. Time out performed. Hand hygiene utilized. Wound cleaned with ChloraPrep. Anesthesia obtained via a 25-gauge hypodermic needle with (5) mL's of lidocaine 2% with epinephrine. Copious irrigation performed. Wound well approximated with 5-0 Nylon x 6 simple interrupted. Patient tolerated procedure well and without difficulty. Empiric antibiotic ointment applied prior to sterile dressing. MANUEL SOTOMAYOR DO May 08, 2020 15:17
[2020-05-08 15:40] VITALS: BP 123/60
== END 2020-05-08 15:50 | disposition home or self-care (01) ==
LOC: ER 13:53
DX: S01.81XA Laceration without foreign body of other part of head, initial encounter (principal); S51.012A Laceration without foreign body of left elbow, initial encounter; S51.811A Laceration without foreign body of right forearm, initial encounter; S61.211A Laceration without foreign body of left index finger without damage to nail, initial encounter; M47.812 Spondylosis without myelopathy or radiculopathy, cervical region; R51 Headache; J44.9 Chronic obstructive pulmonary disease, unspecified; E78.00 Pure hypercholesterolemia, unspecified; I11.0 Hypertensive heart disease with heart failure; I50.9 Heart failure, unspecified; Z95.0 Presence of cardiac pacemaker; Z88.0 Allergy status to penicillin; Z88.1 Allergy status to other antibiotic agents; Z88.2 Allergy status to sulfonamides; Z88.8 Allergy status to other drugs, medicaments and biological substances; W17.89XA Other fall from one level to another, initial encounter; Y93.89 Activity, other specified; Y92.89 Other specified places as the place of occurrence of the external cause; Y99.8 Other external cause status
CPT/HCPCS: 12013; 70450; 72125; 99285; J3490